=== PATIENT | female | born 1995 | race Two or more races ===

== ENCOUNTER 2021-07-29 00:21 | Emergency (ER) | payer BC, MEDICAID ==
[~2021-07-29] VITALS: Ht 172.7 cm; Wt 99.8 kg
[2021-07-29] MEDS ORDERED: diphenhdrAMINE HCL 50 MG/1 ML VL IV ONE (01:00)
[2021-07-29] MEDS ORDERED: DexAMETHasone SOD PHOS 10MG/1ML VIAL INJ IV ONE (01:00)
[2021-07-29] MEDS ORDERED: FAMOTIDINE (10MG/ML) 2ML VL IV ONE (01:00)
[2021-07-29 02:09] VITALS: BP 107/63
== END 2021-07-29 03:15 | disposition home or self-care (01) ==
LOC: ER 00:21
DX: T78.40XA Allergy, unspecified, initial encounter (principal); X58.XXXA Exposure to other specified factors, initial encounter
CPT/HCPCS: 96374; 96375; 99284; J1100; J1200; J3490